=== PATIENT | female | born 1980 | race Caucasian/White ===

== ENCOUNTER 2022-07-27 07:06 | Emergency (ER) | payer OTHER, SELFPAY ==
--- NOTE | ~2022-07-27 | XR_ITS ---
Portable chest x-ray Comparison: None Clinical History: Cough Findings: Lungs are clear, without focal consolidation or pleural effusion. Cardiomediastinal silhou ette is unremarkable. Bones and soft tissues are unremarkable. Impression: Normal chest. Reviewed, dictated and finalized at location . [employer] Impression: Normal chest.
[2022-07-27 07:12] VITALS: BP 128/75; PULSE 83; RESP 22; TEMP 36.7; O2SAT 100
--- NOTE | 2022-07-27 07:24 | ECG_ITS ---
Measurements Intervals [place] Rate: 68 P: 41 OK: 148 QRS: 53 QRSD: 83 T: 54 QT: 382 QTc: 408 Interpretive Statements SINUS RHYTHM NO PREVIOUS ECG AVAILABLE FOR COMPARISON Electronically Signed On 07-27-2022 14:52:40 [employer] by Luana Rodney M.D.
--- NOTE | 2022-07-27 07:46 | ED.GENADULT ---
HPI - General Adult General Chief complaint: Upper Respiratory Infection Stated complaint: FLU S/SX,COUGH Time Seen by Provider: 07/27/22 07:17 History of Present Illness HPI narrative: This is a 42-year-old female presenting to ED with a chief complaint of flu-like symptoms and right back pain. Patient says that the pain started yesterday morning when she awoke, it is achy pain in the right side of her back that has then spread to all over. Has 6/10 in intensity, constant and getting worse. She has never experienced pain like this before. It is worse with lying down and there are no alleviating factors. She did have 1 episode of post tussis emesis and other associated symptoms include cough congestion fatigue and decreased oral intake. she denies diarrhea. She denies lower extremity edema or risk factors for DVT / PE. Related Data Allergies Allergy/AdvReac Type Severity Reaction Status Date / Time No Known Allergies Allergy Mild Unverified 08/14/08 11:37 Review of Systems Review of Systems: CONSTITUTIONAL: Denies night sweats. EYES: No eye pain ENT: Denies rhinorrhea CARDIOVASCULAR: Denies palpitations RESPIRATORY: Denies hemoptysis GASTROINTESTINAL: Denies hematemesis GENITOURINARY: Denies hematuria. SKIN: Denies rash MUSCULOSKELETAL: Denies myalgia. NEUROLOGIC: Denies weakness. PSYCHIATRIC: Denies delusions PMFSH Past Medical History Medical History (Updated 07/27/22 @ 09:02 by Jake Ramirez MD) Healthy adult Social History Social History (Updated 07/27/22 @ 07:47 by Jake Ramirez MD) Social History: Patient admits to occasional alcohol, tobacco and marijuana use. Exam Narrative: APPEARANCE: patient appears uncomfortable Head: atraumatic. EYES: EOMI, NOSE: Atraumatic NECK: Trachea midline RESPIRATORY: No increased rate of breathing, clear to auscultation bilaterally with no rhonchi or rales. Documented respiratory rate of 22 but was 16-18 during my interview. CARDIOVASCULAR: RRR, No peripheral edema ABDOMINAL: Non-distended, no guarding or rebound no tenderness MUSCULOSKELETAl: No obvious deformities NEURO: Alert. Moving 4/4 extremities SKIN:: Warm, dry. Normal color PSYCHIATRIC: Normal affect Course Vital Signs Vital signs: Vital Signs Temperature 98.1 F 07/27/22 07:12 Pulse Rate 83 07/27/22 07:12 Respiratory Rate 22 H 07/27/22 07:12 Blood Pressure 128/75 07/27/22 07:12 Pulse Oximetry 100 07/27/22 07:12 Oxygen Delivery Room Air 07/27/22 07:12 Temperature 98.1 F 07/27/22 07:12 Pulse Rate 60 07/27/22 08:42 Respiratory Rate 19 07/27/22 08:42 Blood Pressure 128/75 07/27/22 07:12 Pulse Oximetry 99 07/27/22 08:42 Oxygen Delivery Room Air 07/27/22 07:59 Medical Decision Making MDM Narrative Medical decision making narrative: this is a 42-year-old female presenting with flu-like symptoms. Differential includes viral syndrome/ COVID/flu, pneumonia. Perc negative. Chest x-ray was interpreted by myself as normal chest. Patient was positive for COVID. EKG interpretation: Rhythm [sinus], Rate 68, [place] -[normal], [place] -[normal], QRS [narrow], QTC [normal], T waves -[negative for concerning inversions], ST Segments - [Negative for concerning elevations] Final interpretations: [Normal Sinus Rhythm] Upon re-evaluation patient is feeling better. Her vital signs are stable, she is not requiring supplemental oxygen, as she is a good candidate for outpatient treatment of her COVID. Patient has been instructed to take Motrin and Tylenol for her symptoms, return emergency department if you develop chest pain shortness of breath or feel like your condition is getting worse. Vital Signs Vital Signs: Vital Signs Temperature 98.1 F 07/27/22 07:12 Pulse Rate 83 07/27/22 07:12 Respiratory Rate 22 H 07/27/22 07:12 Blood Pressure 128/75 07/27/22 07:12 Pulse Oximetry 100 07/27/22 07:12 Oxygen Delivery Room Air 07/27/22
[2022-07-27 07:57] LABS: Glucose Point of Care 149 mg/dl (65-105)
[2022-07-27 07:59] VITALS: O2SAT 100
[2022-07-27] MEDS: IBUPROFEN 400 MG TABLET 800 MG PO (08:03)
[2022-07-27] MEDS: ACETAMINOPHEN 500 MG TABLET 1000 MG PO (08:03)
[2022-07-27 08:15] LABS: Influenza A QL RT-PCR Negative (Negative); Influenza B QL RT-PCR Negative (Negative); SARS-CoV-2 RNA PCR Positive
[2022-07-27] MEDS: guaiFENesin/DEXTROMETHORPHAN 10 ML UDC PO (08:20)
[2022-07-27 08:42] VITALS: PULSE 60; RESP 19; O2SAT 99
[2022-07-27 09:17] VITALS: BP 118/72; PULSE 67; RESP 20; O2SAT 100
== END 2022-07-27 09:19 | disposition home or self-care (01) ==
PROVIDERS: Emergency Provider Emergency Medicine; PCP Family Medicine
DX: U07.1 COVID-19 (principal)
CPT/HCPCS: 71045; 82948; 87636; 93005; 99283; A9270